=== PATIENT | female | born 1995 | race Caucasian/White ===

== ENCOUNTER 2017-11-25 23:59 | Emergency (ER) | payer BC ==
[~2017-11-25] VITALS: Ht 167.6 cm; Wt 48.1 kg
[2017-11-26 00:08] VITALS: Ht 167.6 cm; Wt 48.1 kg
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
[2017-11-26 00:52] LABS: BASO % 0.7 %; BASO ABS # 0.06 K/uL (0-0.2); EOS % 5.6 %; EOS ABS # 0.51 K/uL (0-0.5); HEMATOCRIT 44.8 % (37-47); HEMOGLOBIN 15.5 g/dL (12.0-16.0); IG# 0.02 K/uL (0.00-0.02); LYMPH % 43.7 %; LYMPH ABS # 3.95 K/uL (1.2-3.4); MEAN CELL VOLUME 94.7 fL (80-100); MEAN CORPUSCULAR HEMOGLOBIN 32.8 pg (25-34); MEAN CORPUSCULAR HGB CONC 34.6 g/dl (32-36); MEAN PLATELET VOLUME 10.6 fL (7.4-10.4); MONO % 9.1 %; MONO ABS # 0.82 K/uL (0.11-0.59); NEUT % 40.7 %; NEUT ABS # 3.68 K/uL (1.4-6.5); PLATELET COUNT 181 K/uL (130-400); RED CELL DISTRIBUTION WIDTH CV 12.3 % (11.5-14.5); RED CELL DISTRIBUTION WIDTH SD 41.9 fL (36.4-46.3); WHITE BLOOD COUNT 9.04 K/uL (4.8-10.8)
[2017-11-26 01:10] LABS: ALBUMIN 4.2 gm/dl (3.4-5.0); ALT/SGPT 29 U/L (12-78); AST/SGOT 17 U/L (15-37); BLOOD UREA NITROGEN 15 mg/dl (7-18); CALCIUM 8.6 mg/dl (8.5-10.1); CARBON DIOXIDE 27 mmol/L (21-32); CREATININE 0.77 mg/dl (0.60-1.20); GLUCOSE 76 mg/dl (70-99); POTASSIUM 3.5 mmol/L (3.5-5.1); SODIUM 138 mmol/L (136-145)
[2017-11-26 01:20] LABS: ALKALINE PHOSPHATASE 73 U/L (45-117); TOTAL PROTEIN 8.1 gm/dl (6.4-8.2)
[2017-11-26 09:34] VITALS: BP 130/83; PULSE 77; TEMP 36.6; O2SAT 99
--- NOTE | 2017-11-26 15:51 | EMERGENCY ROOM VISIT NOTE ---
ED Visit Note This patient was signed out to me at shift change at approximate 7:[address] Torres. At that point ,the patient had been medically cleared and had signed a 201 statement wishing to be admitted for her suicidal ideations. When I went to check on the patient, she is resting comfortably was asymptomatic. She had no complaints. She was ultimately placed into [facility] and is going to go there for further inpatient treatment and evaluation voluntarily.
== END 2017-11-26 09:31 ==
LOC: C.EDB 11-26 00:02 → C.EDA 11-26 09:31
DX: R45.851 Suicidal ideations (principal)

== ENCOUNTER 2017-12-11 13:39 | Emergency (ER) | payer BC ==
[~2017-12-11] VITALS: Ht 166.4 cm; Wt 48.2 kg
[2017-12-11 13:47] VITALS: TEMP 36.7; Ht 166.4 cm; Wt 48.2 kg
[2017-12-11] MEDS ORDERED: OFLOXACIN 0.3% OP SOLN 5 ML BTL OP STA (14:40)
--- NOTE | 2017-12-11 14:44 | EMERGENCY ROOM VISIT NOTE ---
History First contact with patient: 13:51 Chief Complaint: EAR PAIN Stated Complaint: EARS BLEEDING History of Present Illness The patient is a 22 year old female who presents to the Emergency Room via private vehicle with complaints of "years bleeding". The patient states that she has had ear pressure for the past few days, and then after getting out of the shower today she felt as though there are water in her ears therefore she used a Q-tip in both ears and now notes pulsing pain in the ears, and believes she may have some blood on the Q-tip from the ears. She states that she was seen not long ago for the same thing at a local clinic. She was told that it was earwax. She has associated nasal drainage, cough and slight chest congestion. She denies any headache, lightheadedness, dizziness, allergies. Review of Systems A complete 6-point Review of Systems was discussed with the patient, with pertinent positives and negatives listed in the History of Present Illness. All remaining Review of Systems questions can be considered negative unless otherwise specified. Past Medical/Surgical History Medical Problems: (1) No chronic problems Family History Patient reports no known family medical history. Social History Smoking Status: Former Smoker Marital Status: in relationship Housing Status: lives with significant other Occupation Status: employed, [employer] student Current/Historical Medications No Active Prescriptions or Reported Meds Physical Exam Vital Signs Date Time Temp Pulse Resp B/P (MAP) Pulse Ox O2 Delivery O2 Flow Rate FiO2 12/11/17 15:15 62 18 112/76 99 12/11/17 13:47 36.7 90 17 100/73 97 Room Air Physical Exam VITAL SIGNS - Vital signs and nursing notes were reviewed. Stable. GENERAL - 22-year-old female appearing her stated age who is in no acute distress. Communicates well with provider and answers questions appropriately. SKIN - Without rashes. No petechial rashes. The skin around the ears is unremarkable. HEAD - NC/AT. EYES - PERRL with EOMI bilaterally. Sclera anicteric. EARS - No deformities of external structures noted on gross examination bilaterally. No pain elicited with palpation of the tragus bilaterally. External auditory canals without discharge or otorrhea. Right ear reveals a small amount of cerumen externally in the distal canal. TM does reveal a small amount of yellowish serous collection behind the TM. No evidence of otitis media. Left ear drum is obscured by that of a cerumen impaction. No evidence of TM rupture. No evidence of otitis externa bilaterally. NOSE - Midline and without cyanosis. No epistaxis or purulent drainage noted. Septum midline without deviation or septal hematoma noted. Medical Decision & Procedures Medications Administered Medications (Trade) Dose Ordered Sig/Michel Route Start Time Stop Time Status Last Admin Dose Admin Ofloxacin (Ocuflox 0.3% Oph Soln) 10 drops NOW STAT OP 12/11/17 14:40 12/11/17 14:43 DC 12/11/17 15:14 10 DROPS Medical Decision Patient was seen and evaluated as above. She presents to us today with ear pain , left greater than right. This is after using a Q-tip. After obtaining a thorough history and physical examination it was evident that the patient was experiencing cerumen impaction on the left. And likely bilateral serous otitis media. The patient is nontoxic. She wanted the ear flushed. I did irrigate the left ear with success. TMs were intact. She was placed upon ofloxacin for the left ear given the manipulation with the extraction of the wax. There was no bleeding. No evidence of TM damage. I do not believe that antibiotics orally are necessary for the serous otitis, rather I favor this to be likely secondary to eustachian tube dysfunction. She is to follow with her family doctor for recheck or return with worsening. The patient was educated upon management, had questions answered prior to discharge, and was discharged home in good condition. She was given the ofloxacin eardrops from here, and is to use [id number] Sudafed. In the evaluation and treatment of this patient the following differential diagnoses were entertained: Otitis media, otitis externa, serous otitis, eustachian tube dysfunction, cerumen impaction, among others. Impression Primary Impression: Eustachian tube dysfunction Additional Impression: Impacted cerumen of left ear Departure Information Dispostion Home / Self-Care Condition GOOD Prescriptions No Active Prescriptions or Reported Meds Referrals No Doctor, Assigned (PCP) Patient Instructions [facility] Additional Instructions You have been treated in the Emergency Department for an earwax build up against the left eardrum as well as fluid buildup behind her ear is likely secondary to sinus congestion. I recommended using ofloxacin ear drops 10 drops daily into the left ear for 7 days to help prevent infection given the irritated state of your ear canal. For pain and fever control, you can use the following [id number] medicines (if >12 yo): - Regular strength (325mg/tab) Tylenol (acetaminophen) 2 tabs every 4-6 hours as needed. Do not exceed 12 tablets in a 24 hour period. Avoid taking more than 3 grams (3000 mg) of Tylenol per day. This includes any other sources of acetaminophen you may take on a regular basis. - Regular strength (200 mg/tab) Advil (ibuprofen) 1-2 tabs every 4-6 hours as needed. Do not exceed a dose of 3200 mg per day. You should follow-up with your Primary Care Provider from today's Emergency Department visit. Return to the emergency department if you develop the following symptoms despite treatment course outlined above: headache, fever, intractable pain, increased redness, swelling, or purulent discharge. Please return with any new/concerning symptoms. Please be careful with Q-tips. Problem Qualifiers
[2017-12-11 15:15] VITALS: BP 112/76; PULSE 62; O2SAT 99
== END 2017-12-11 15:15 | disposition home or self-care (01) ==
LOC: C.EDB 13:41 → C.EDD 15:15
DX: H69.90 Unspecified Eustachian tube disorder, unspecified ear (principal); H61.22 Impacted cerumen, left ear; Z87.891 Personal history of nicotine dependence